=== PATIENT | male | born 1975 | race Caucasian/White ===

== ENCOUNTER 2021-05-23 13:12 | Inpatient (IN) | payer OTHER ==
[~2021-05-23] VITALS: Ht 167.6 cm; Wt 111.6 kg
[2021-05-23] MEDS ORDERED: DEXAMETHASONE 1 MG TABLET PO ONE (14:30)
[2021-05-23] MEDS ORDERED: hydrALAZINE HCL IV 20 MG VIAL IV ONE (14:30)
[2021-05-23 14:51] LABS: BASOPHILS # (AUTO) 0.1 K/uL (0.0-0.2); BASOPHILS % (AUTO) 0.9 % (0.0-2.0); EOSINOPHILS % (AUTO) 3.3 % (0.0-6.0); HEMATOCRIT 41 % (39-51); HEMOGLOBIN 13.6 g/dL (13.5-17.5); LYMPHOCYTES # (AUTO) 1.2 K/uL (0.8-4.8); LYMPHOCYTES % (AUTO) 13.7 % (20.0-44.0); MEAN CORPUSCULAR HGB CONC 33 g/dl (31.0-36.0); MEAN CORPUSCULAR VOLUME 84 fL (80-96); MONOCYTES # (AUTO) 0.6 K/uL (0.1-1.30); MONOCYTES % (AUTO) 6.7 % (2.0-12.0); NEUTROPHILS # (AUTO) 6.7 K/uL (1.8-8.9); NEUTROPHILS % (AUTO) 75.4 % (43.0-81.0); PLATELET COUNT (AUTO) 212 K/uL (150-450); RED BLOOD CELL COUNT(AUTO) 4.95 MIL/uL (4.5-6.0); WHITE BLOOD COUNT (AUTO) 8.9 K/uL (4.3-11.0)
[2021-05-23] MEDS ORDERED: hydrALAZINE HCL IV 20 MG VIAL ONE (14:55)
[2021-05-23 14:57] LABS: ABG BASE EXCESS -0.8 mmol/L; ABG OXYGEN SATURATION 97.3 % (92.0-98.5); ABG PCO2 37.9 mmHg (35.0-45.0); ABG PO2 98.7 mmHg (75.0-100.0); AaDO2 128.5 mmHg; COHb 1.4 % (0.5-1.5); MetHb 0.4 % (0.0-1.5); O2Hb 95.5 % (94.0-97.0); SITE, ABG Right Radial; VENT MODE, BG nasal cannula
[2021-05-23] MEDS ORDERED: DEXAMETHASONE 1 MG TABLET ONE (14:57)
[2021-05-23] MEDS ORDERED: DEXAMETHASONE 4 MG TABLET ONE (14:58)
[2021-05-23 15:01] LABS: CALCIUM, SERUM 8.9 mg/dL (8.5-10.1); POTASSIUM 3.9 mmol/L (3.5-5.1)
--- NOTE | 2021-05-23 15:09 | NUR ---
"I cant breathe/SOB started yesterday worse now. Also have pain on chest". PT AAOX4, PLACED ON GALLERY DIRECTOR, ST. ON 5L OF O2, SAT 96%. PT SEEN & EVAL'D BY DR. SANDERS. MEDICATED ORDERED, PT ESPERANZA WELL. WILL CONT TO MONITOR.
[2021-05-23 15:12] LABS: D-DIMER 0.28 mg/L(FEU (0.17-0.50)
[2021-05-23 15:14] LABS: ALBUMIN 3.6 g/dL (3.4-5.0); BILIRUBIN,TOTAL 0.3 mg/dL (0.2-1.0); TOTAL PROTEIN, SERUM 7.9 g/dL (6.4-8.2)
[2021-05-23] MEDS ORDERED: IPRATROPIUM NEB FS 0.5 MG/2.5 ML AMPUL.NEB NEB ONE (15:30)
[2021-05-23] MEDS ORDERED: ALBUTEROL FS 2.5 MG/3 ML VIAL.NEB CONTNEB ONE (15:30)
[2021-05-23] MEDS ORDERED: CEFTRIAXONE 1GM BAG (ER ONLY) 50 ML IV ONE ×2 (15:44→16:00)
[2021-05-23] MEDS ORDERED: IPRATROPIUM NEB FS 0.5 MG/2.5 ML AMPUL.NEB ONE (15:50)
[2021-05-23] MEDS ORDERED: ALBUTEROL FS 2.5 MG/3 ML VIAL.NEB ONE (15:50)
--- NOTE | 2021-05-23 15:55 | NUR ---
PT GETTING BREATHING TX, PT ESPERANZA WELL. WILL CONT TO MONITOR.
[2021-05-23] MEDS ORDERED: AZITHROMYCIN 500 MG in IV D5W 250 ML IV ONE (16:00)
[2021-05-23] MEDS ORDERED: HYDROCODONE/APAP 5/325MG TABLET PO PRN (17:00)
[2021-05-23] MEDS ORDERED: IPRATROPIUM NEB FS 0.5 MG/2.5 ML AMPUL.NEB NEB PRN (17:00)
[2021-05-23] MEDS ORDERED: GUAIFENESIN/CODEINE 10 ML UDC PO PRN (17:00)
[2021-05-23] MEDS ORDERED: ALBUTEROL FS 2.5 MG/0.5 ML VIAL.NEB NEB PRN (17:00)
[2021-05-23] MEDS ORDERED: MAGNESIUM HYDROXIDE 30 ML UDC PO PRN (17:00)
[2021-05-23] MEDS ORDERED: MAG HYDROX/AL HYDROX/SIMETH 30 ML UDC PO PRN (17:00)
[2021-05-23] MEDS ORDERED: ACETAMINOPHEN 325 MG TABLET PO PRN (17:00)
[2021-05-23] MEDS ORDERED: Z GUARD REMEDY 2 OZ OINT TP PRN (17:00)
[2021-05-23] MEDS ORDERED: ONDANSETRON HCL/PF 4 MG/2 ML VIAL IVP PRN (17:00)
[2021-05-23 17:30] LABS: C-REACTIVE PROTEIN 10.4 mg/dL (0.0-0.9)
--- NOTE | 2021-05-23 18:01 | NUR ---
NURSING SUP GAVE 109.
--- NOTE | 2021-05-23 20:02 | NUR ---
REPORT GIVEN TO PERCY BENOIT FOR MARTINA.
[2021-05-23 20:17] VITALS: BP 164/107
--- NOTE | 2021-05-23 20:17 | NUR ---
ADMIT NOTE RECEIVED PATIENT FROM ER TO ROOM 109. PATIENT ALERT AND ORIENTED X4, ABLE TO MAKE NEEDS KNOWN. ABLE TO AMBULATE SAFELY TO BED. ADMITTING DIAGNOSIS: COMMUNITY ACQUIRED PNEUMONIA AND CHEST PAIN. ON O2 2LPM VIA NASAL CANNULA, NO SIGNS OF RESPIRATORY DISTRESS. AUSCULTATED LUNG SOUNDS, RHONCHI NOTED BILATERALLY. WITH NON PRODUCTIVE COUGH. TELE MONITOR ON, HEART RATE 90'S. DENIES ANY PAIN AT THIS TIME. IV ACCESS ON RIGHT AC# 20, PATENT AND INTACT. NO SIGNS OF INFILTRATION. SKIN IS INTACT. ORIENTED PATIENT TO ROOM AND CALL LIGHT. BED LOCKED AND IN LOWEST POSITION. SAFETY MEASURES MAINTAINED. CALL LIGHT WITHIN REACH. ALL NEEDS ANTICIPATED.
[2021-05-23] MEDS: methylPREDNISolone SOD SUCC 40 MG/ML VIAL IV SCH (21:19)
[2021-05-23] MEDS: ZOLPIDEM TARTRATE 5 MG TABLET PO PRN (21:26)
[2021-05-24] VITALS: BP 169/107
--- NOTE | 2021-05-24 00:50 | NUR ---
NOTIFIED [facility] PATIENTS BLOOD PRESSURE 169/107 AND SWEATING PROFUSELY. DENIES ANY PAIN OR CHEST PAIN. RECEIVED NEW ORDERS FOR HYDRALAZINE 10MG PO Q8HRS PRN FOR SBP >160. NOTED AND CARRIED OUT.
[2021-05-24] MEDS: hydrALAZINE HCL 10 MG TABLET PO PRN ×2 (01:59→12:32)
[2021-05-24 03:28] LABS: BASOPHILS % (AUTO) 0.1 % (0.0-2.0); EOSINOPHILS % (AUTO) 0.1 % (0.0-6.0); HEMATOCRIT 43 % (39-51); HEMOGLOBIN 14.1 g/dL (13.5-17.5); LYMPHOCYTES # (AUTO) 0.6 K/uL (0.8-4.8); LYMPHOCYTES % (AUTO) 8.5 % (20.0-44.0); MEAN CORPUSCULAR HGB CONC 33 g/dl (31.0-36.0); MEAN CORPUSCULAR VOLUME 84 fL (80-96); MONOCYTES # (AUTO) 0.1 K/uL (0.1-1.30); MONOCYTES % (AUTO) 0.9 % (2.0-12.0); NEUTROPHILS % (AUTO) 90.4 % (43.0-81.0); PLATELET COUNT (AUTO) 207 K/uL (150-450); RED BLOOD CELL COUNT(AUTO) 5.12 MIL/uL (4.5-6.0); WHITE BLOOD COUNT (AUTO) 6.6 K/uL (4.3-11.0)
[2021-05-24 03:51] LABS: CREATININE 1.1 mg/dL (0.6-1.3); MAGNESIUM 2.2 mg/dL (1.8-2.4); PHOSPHORUS 4.1 mg/dL (2.5-4.9)
[2021-05-24 03:53] LABS: THYROID STIMULATING HORMONE 0.318 uIU/mL (0.358-3.74)
[2021-05-24 04:00] VITALS: BP 146/95
--- NOTE | 2021-05-24 04:23 | NUR ---
NOTIFIED LONNY CHOW OF GLUCOSE LVL 384, WITH NEW ORDERS RECEIVED, NOTED AND CARRIED OUT.
[2021-05-24] MEDS ORDERED: DEXTROSE 50%-WATER 50 ML DISP.SYRIN IV PRN (04:30)
[2021-05-24] MEDS: methylPREDNISolone SOD SUCC 40 MG/ML VIAL IV SCH ×3 (05:48→21:44)
--- NOTE | 2021-05-24 07:18 | NUR ---
RN NOTE PATIENT ALERT AND ORIENTED X4, ON O2 2LPM VIA NASAL CANNULA, NO SIGNS OF RESPIRATORY DISTRESS. TELE MONITOR ON, HEART RATE 90'S. DENIES ANY PAIN AT THIS TIME. IV ACCESS ON RIGHT AC# 20, PATENT AND INTACT. NO SIGNS OF INFILTRATION. ALL NEEDS ATTENDED PROMPTLY. BED LOCKED AND IN LOWEST POSITION. SAFETY MEASURES MAINTAINED. CALL LIGHT WITHIN REACH. ENDORSED TO AM SHIFT.
[2021-05-24] MEDS: BLOOD SUGAR DIAGNOSTIC 1 EACH STRIP IN SCH ×4 (07:30→23:56)
--- NOTE | 2021-05-24 07:30 | NUR ---
RN OPENING NOTE RN NOTE PT A/Ox4, ON O2 2LPM VIA NASAL CANNULA, NO SIGNS OF RESPIRATORY DISTRESS OR SOB. TELE MONITOR ON, HEART RATE NSR 90'S. PT IS AMBULATORY WITH STEADY GAIT. PT DENIES PAIN AT THIS TIME. IV ACCESS ON RT AC# 20 FLUSHED, PATENT AND INTACT. NO SIGNS OF INFECTION/INFILTRATION. BED LOCKED AND IN LOWEST POSITION. ALL PT SAFETY MEASURES MAINTAINED. CALL LIGHT WITHIN REACH.
[2021-05-24 08:00] VITALS: BP 150/94
--- NOTE | 2021-05-24 08:00 | NUR ---
RN NOTE DR MENSAH AWARE OF BNP [id number]
[2021-05-24] MEDS: PANTOPRAZOLE 40 MG TABLET.DR PO SCH (08:22)
--- NOTE | 2021-05-24 08:30 | NUR ---
RN NOTE PT ORIGINALLY REFUSED INSULIN WITH BLOOD GLUCOSE OF 456. DR MENSAH AWARE. AFTER 30+ MINUTES OF PT EDUCATION/RISKS, PT AGREED FOR INSULIN ADMIN, BUT SAID HE WOULDN'T TAKE ANY MORE INSULIN. WILL KEEP DR MENSAH UPDATED ON SITUATION
[2021-05-24] MEDS: INSULIN REGULAR, HUMAN 100 UNIT/ML 3 ML VIAL SQ PRN ×4 (09:05→23:57)
[2021-05-24 12:00] VITALS: BP 171/111
[2021-05-24] MEDS: METFORMIN 500 MG TABLET PO SCH ×2 (12:54→17:00)
[2021-05-24 16:00] VITALS: BP 147/94
[2021-05-24] MEDS: CEFTRIAXONE 1 G in IV D5W 50 ML IV SCH (16:50)
[2021-05-24] MEDS: AZITHROMYCIN 500 MG in IV D5W 250 ML IV SCH (17:31)
--- NOTE | 2021-05-24 19:00 | NUR ---
RN CLOSING NOTE NO CHANGES TO PT DURING SHIFT. PT IS STABLE ON 2L NC. PT REQUIRES A LOT OF DM EDUCATION AND GENERAL PT EDUCATION. MONITOR HYPERTENSION, HYDRALIZINE PRN AVAILABLE. ALL PT SAFETY PRECAUTIONS IN PLACE. MARTINA ENDORSED TO RN
[2021-05-24 20:00] VITALS: BP 164/111
[2021-05-24] MEDS: ZOLPIDEM TARTRATE 5 MG TABLET PO PRN (21:48)
[2021-05-25] VITALS: BP 158/106
--- NOTE | 2021-05-25 03:05 | NUR ---
RN notes Alert and oriented x 4. Ambulatory. Able to communicate needs verbally. No complaint of pain or discomfort. Ambien given for sleep. On 2lpm O2 via nasal cannula tolerating well. No distress noted. breathing even and unlabored. Kept clean and dry. No significant change of condition. Vital signs wnl. Will endorse to next shift for continuity of care.
[2021-05-25 04:00] VITALS: BP 161/114
[2021-05-25] MEDS: methylPREDNISolone SOD SUCC 40 MG/ML VIAL IV SCH ×3 (04:43→20:13)
[2021-05-25] MEDS: BLOOD SUGAR DIAGNOSTIC 1 EACH STRIP IN SCH ×4 (07:30→22:00)
[2021-05-25 08:00] VITALS: BP 156/95
--- NOTE | 2021-05-25 08:10 | NUR ---
NURSE REPORT REPORT OBTAINED FROM NIGHT NURSE AND THIS NURSE ASSUMED CARE OF PATIENT UNTIL 193 PT A/Ox4, ON RA- O2 SAT 98%, NO SIGNS OF RESPIRATORY DISTRESS OR SOB. TELE MONITOR ON, HEART RATE NSR TO ST. PATIENT ATE BREAKFAST BEFORE BG CAN BE TAKEN- THIS AM BG 400'S. GIVEN 10 UNITS INSULIN. PT IS AMBULATORY WITH STEADY GAIT. PT DENIES PAIN AT THIS TIME. IV ACCESS ON RT AC# 20 FLUSHED, PATENT AND INTACT. NO SIGNS OF INFECTION/INFILTRATION. BED LOCKED AND IN LOWEST POSITION. ALL PT SAFETY MEASURES MAINTAINED. CALL LIGHT WITHIN REACH.
[2021-05-25] MEDS: METFORMIN 500 MG TABLET PO SCH ×2 (08:47→17:25)
[2021-05-25] MEDS: PANTOPRAZOLE 40 MG TABLET.DR PO SCH (08:49)
[2021-05-25] MEDS: INSULIN REGULAR, HUMAN 100 UNIT/ML 3 ML VIAL SQ PRN ×3 (08:51→23:19)
[2021-05-25 12:00] VITALS: BP 164/113
[2021-05-25] MEDS: hydrALAZINE HCL 10 MG TABLET PO PRN ×2 (12:05→20:27)
[2021-05-25 16:00] VITALS: BP 153/106
--- NOTE | 2021-05-25 16:00 | NUR ---
NURSE CARE BG BEFORE LUNCH 320 AND BEFORE DINNER 171. DONE BEFORE GIVING IV ATB WITH D5W IN IT. PATIENT STATED "I AM NOT A DIABETIC. DIABETIC MEAN IN BED.' EXPLAINED THAT INFECTION CAN INCREASE SUGAR AND THAT HE ALSO ON STEROIDS. VSS. AFEB.
[2021-05-25] MEDS: CEFTRIAXONE 1 G in IV D5W 50 ML IV SCH (16:14)
[2021-05-25] MEDS: AZITHROMYCIN 500 MG in IV D5W 250 ML IV SCH (16:15)
--- NOTE | 2021-05-25 19:39 | NUR ---
CHIEF DEPUTY CORONER NOTES PT RECEIVED IN BED ALERT AND ORIENTED X4 PT ON ROOM AIR TOLERATING WELL NO REPORTS OF PAIN OR DISCOMFORT AT THIS TIME. ALL NURSING NEEDS MET AT THIS TIME. PT ON TELE MONITOR ST 100 PT HAS IV ACCESS ON THE RIGHT AC 20 G SL. CALL LIGHT WITHIN REACH. SAFETY PRECAUTIONS FOLLOWED AT ALL TIMES. HOB ELEVATED BILATERAL SIDE RAILS UP BED LOCKED IN POSITION. WILL CONTINUE TO MONITOR.
[2021-05-25 20:19] VITALS: BP 166/109
[2021-05-25] MEDS: INSULIN GLARGINE, 100 UNIT/ML CARTRIDGE SQ SCH ×2 (22:00→23:20)
[2021-05-25] MEDS: ZOLPIDEM TARTRATE 5 MG TABLET PO PRN (23:15)
[2021-05-26 00:50] VITALS: BP 145/100
[2021-05-26 04:26] VITALS: BP 149/105
[2021-05-26] MEDS: methylPREDNISolone SOD SUCC 40 MG/ML VIAL IV SCH ×2 (04:30→21:20)
--- NOTE | 2021-05-26 06:50 | NUR ---
JUNIOR PROGRAMMER ANALYST NOTES PT IN BED ALERT AND ORIENTED X4 PT ON ROOM AIR TOLERATING WELL NO REPORTS OF PAIN OR DISCOMFORT AT THIS TIME. ALL NURSING NEEDS MET AT THIS TIME. PT ON TELE MONITOR ST 100 PT HAS IV ACCESS ON THE RIGHT AC 20 G SL. CALL LIGHT WITHIN REACH. SAFETY PRECAUTIONS FOLLOWED AT ALL TIMES. HOB ELEVATED BILATERAL SIDE RAILS UP BED LOCKED IN POSITION. ALL NURSING NEEDS MET. ALL MEDS DUE GIVEN AND TOLERATED WILL ONLY MED PT REFUSED WAS LANTUS RISK AND BENEFITS EXPLAINED X 3 PT REFUSED X 3 PRN BLOOD PRESSURE MED GIVEN X1.WILL ENDORSE CARE.
[2021-05-26 07:12] LABS: BASOPHILS % (AUTO) 0.1 % (0.0-2.0); HEMATOCRIT 41 % (39-51); HEMOGLOBIN 13.4 g/dL (13.5-17.5); LYMPHOCYTES # (AUTO) 0.8 K/uL (0.8-4.8); LYMPHOCYTES % (AUTO) 8.2 % (20.0-44.0); MEAN CORPUSCULAR HGB CONC 33 g/dl (31.0-36.0); MEAN CORPUSCULAR VOLUME 84 fL (80-96); MONOCYTES # (AUTO) 0.5 K/uL (0.1-1.30); MONOCYTES % (AUTO) 4.9 % (2.0-12.0); NEUTROPHILS # (AUTO) 8.5 K/uL (1.8-8.9); NEUTROPHILS % (AUTO) 86.8 % (43.0-81.0); PLATELET COUNT (AUTO) 218 K/uL (150-450); RED BLOOD CELL COUNT(AUTO) 4.85 MIL/uL (4.5-6.0); WHITE BLOOD COUNT (AUTO) 9.8 K/uL (4.3-11.0)
[2021-05-26 07:38] LABS: CALCIUM, SERUM 8.6 mg/dL (8.5-10.1); CREATININE 1.1 mg/dL (0.6-1.3); MAGNESIUM 2.3 mg/dL (1.8-2.4); PHOSPHORUS 3.7 mg/dL (2.5-4.9); POTASSIUM 4.4 mmol/L (3.5-5.1)
--- NOTE | 2021-05-26 07:55 | NUR ---
DIRECTORY ASSISTANCE OPERATOR OPENING NOTE PATIENT IS IN BED RESTING, PATIENT IS ON ROOM AIR, SATURATING WELL. PATIENT IS ON TELE MONITOR READING ST 90s. PATIENT CAN AMBULATE TO THE BATHROOM. SAFETY PRECAUTIONS ARE ON, BED IS LOCKED IN THE LOWEST POSITION WITH SIDE RAILS UP, CALL LIGHT WITHIN REACH, WILL CONTINUE TO MONITOR CLOSELY.
[2021-05-26 08:00] VITALS: BP 149/101
[2021-05-26] MEDS: BLOOD SUGAR DIAGNOSTIC 1 EACH STRIP IN SCH ×4 (08:26→21:39)
[2021-05-26] MEDS: METFORMIN 500 MG TABLET PO SCH ×2 (08:26→17:16)
[2021-05-26] MEDS: PANTOPRAZOLE 40 MG TABLET.DR PO SCH (08:26)
[2021-05-26] MEDS: LISINOPRIL (10MG) 10 MG TABLET PO SCH (08:27)
[2021-05-26] MEDS: INSULIN REGULAR, HUMAN 100 UNIT/ML 3 ML VIAL SQ PRN ×4 (08:33→21:35)
[2021-05-26 12:00] VITALS: BP 175/120
[2021-05-26] MEDS: hydrALAZINE HCL 10 MG TABLET PO PRN ×2 (12:46→17:16)
[2021-05-26 16:00] VITALS: BP 170/113
[2021-05-26] MEDS: CEFTRIAXONE 1 G in IV D5W 50 ML IV SCH (16:18)
[2021-05-26] MEDS: AZITHROMYCIN 500 MG in IV D5W 250 ML IV SCH (18:02)
--- NOTE | 2021-05-26 19:00 | NUR ---
RN NOTE RECEIVED PATIENT IN BED RESTING ALERT ORIENTED X4 VERBALLY RESPONSIVE ON 2L OXYGEN VIA NASAL CANNULA,O2:97% AMBULATORY,IV SITE IS ON RIGHT AC INTACT PATENT,CONTINENT TO BOWEL/BLADDER SAFETY MEASURE IMPLEMENT CALL LIGHT WITHIN REACH CONTINUE TO MONITOR.
--- NOTE | 2021-05-26 19:40 | NUR ---
UNDRAPED ARTIST MODEL CLOSING NOTE PATIENT IS IN BED RESTING, PATIENT IS ON ROOM AIR, SATURATING WELL. PATIENT IS ON TELE MONITOR READING ST 90s. PATIENT CAN AMBULATE TO THE BATHROOM. SAFETY PRECAUTIONS ARE ON, BED IS LOCKED IN THE LOWEST POSITION WITH SIDE RAILS UP, CALL LIGHT WITHIN REACH, ENDORSE PATIENT TO RECYCLING CREW SUPERVISOR NURSE FOR MARTINA.
[2021-05-26 20:00] VITALS: BP 172/115
[2021-05-26] MEDS: INSULIN GLARGINE, 100 UNIT/ML CARTRIDGE SQ SCH (21:38)
[2021-05-26] MEDS: ZOLPIDEM TARTRATE 5 MG TABLET PO PRN (23:28)
[2021-05-27] VITALS: BP 147/104
[2021-05-27 04:00] VITALS: BP 160/108
[2021-05-27 06:40] LABS: BASOPHILS % (AUTO) 0.1 % (0.0-2.0); HEMATOCRIT 43 % (39-51); HEMOGLOBIN 14.1 g/dL (13.5-17.5); LYMPHOCYTES % (AUTO) 11.5 % (20.0-44.0); MEAN CORPUSCULAR HGB CONC 33 g/dl (31.0-36.0); MEAN CORPUSCULAR VOLUME 84 fL (80-96); MONOCYTES # (AUTO) 0.4 K/uL (0.1-1.30); MONOCYTES % (AUTO) 4.7 % (2.0-12.0); NEUTROPHILS # (AUTO) 7.1 K/uL (1.8-8.9); NEUTROPHILS % (AUTO) 83.7 % (43.0-81.0); PLATELET COUNT (AUTO) 221 K/uL (150-450); RED BLOOD CELL COUNT(AUTO) 5.16 MIL/uL (4.5-6.0); WHITE BLOOD COUNT (AUTO) 8.5 K/uL (4.3-11.0)
--- NOTE | 2021-05-27 06:47 | NUR ---
RN NOTE PATIENT REMAINS ON ALERT ORIENTED X4 VERBALLY RESPONSIVE NO SOB NOT ACUTE DISTRESS NOTED,ALL DUE MEDS GIVEN MD ORDERED ,KEPT CALL LIGHT WITHIN REACH,ALL NEEDS MET ENDORSE NEXT COMING SHIFT FOR CONTINUATION OF CARE.
[2021-05-27 07:00] LABS: CALCIUM, SERUM 8.7 mg/dL (8.5-10.1); MAGNESIUM 2.3 mg/dL (1.8-2.4); PHOSPHORUS 3.9 mg/dL (2.5-4.9); POTASSIUM 4.9 mmol/L (3.5-5.1)
[2021-05-27] MEDS: BLOOD SUGAR DIAGNOSTIC 1 EACH STRIP IN SCH ×4 (07:40→22:34)
[2021-05-27 08:00] VITALS: BP 161/108
--- NOTE | 2021-05-27 08:01 | NUR ---
NEWS DIRECTOR OPENING NOTES RECEIVED PATIENT IN BED AWAKE. ALERT AND ORIENTED X4. PATIENT IS ON TELE MONITOR WITH SINUS RHYTHM. ABLE TO MAKE NEEDS KNOWN. NO SIGNS OR SYMPTOMS OF DISTRESS NOTED. NO SOB. NO COMPLAINTS OF PAIN AT THIS TIME. SAFETY MEASURES IN PLACE, BED LOCKED AT LOWEST POSITION WITH SIDE RAILS UP X 2. CALL LIGHT IS WITHIN REACH. WILL CONTINUE TO MONITOR THROUGHOUT SHIFT.
[2021-05-27] MEDS: PANTOPRAZOLE 40 MG TABLET.DR PO SCH ×2 (08:26→08:33)
[2021-05-27] MEDS: methylPREDNISolone SOD SUCC 40 MG/ML VIAL IV SCH ×2 (08:32→21:55)
[2021-05-27] MEDS: METFORMIN 500 MG TABLET PO SCH ×2 (08:33→16:20)
[2021-05-27] MEDS: LISINOPRIL (10MG) 10 MG TABLET PO SCH (08:35)
[2021-05-27] MEDS: INSULIN REGULAR, HUMAN 100 UNIT/ML 3 ML VIAL SQ PRN ×4 (08:40→22:39)
[2021-05-27] MEDS: FUROSEMIDE 20 MG/2 ML VIAL IV ONE ×2 (11:39→11:47)
[2021-05-27 12:00] VITALS: BP 140/99
[2021-05-27] MEDS: hydrALAZINE HCL 10 MG TABLET PO PRN (13:39)
[2021-05-27] MEDS: CEFTRIAXONE 1 G in IV D5W 50 ML IV SCH (15:48)
[2021-05-27 16:09] VITALS: BP 169/105
[2021-05-27] MEDS: AZITHROMYCIN 500 MG in IV D5W 250 ML IV SCH (16:21)
--- NOTE | 2021-05-27 18:40 | NUR ---
SWORD SWALLOWER CLOSING NOTES TRANSFERRED PATIENT TO ROOM 304 WITH STABLE VITAL SIGNS. ALERT AND ORIENTED X 4. NO SOB. NO COMPLAINTS OF PAIN AT THIS TIME. ALL BELONGINGS WITH PATIENT WHEN TRANSFERRED. REPORT GIVEN TO ASHA PALAFOX.
--- NOTE | 2021-05-27 18:40 | NUR ---
tele custom protection officer: notes received pt from tele 1st floor via wheelchair accompanied by 1rn and 1 rn discharge with chart[address] pt on tele sr=[id number]. oriented to room and surroundings. pt wants to shower the second he gets here, but no order. no c/o sob, coughing, or congestion noted. instructed to call for assistance. will continue to monitor.
[2021-05-27 20:00] VITALS: BP 105/69
--- NOTE | 2021-05-27 21:00 | NUR ---
EQUAL OPPORTUNITY OFFICER NOTE RECEIVED PATIENT SITTING AT THE EDGE OF THE BED WATCHING ON HIS PHONE. PATIENT IS CURRENTLY ON RA TOLERATING WITH 100% O2 SATURATION, PATIENT DOES NOT COMPLAIN OF ANY PAIN AT THIS TIME. PATIENT ABLE TO AMBULATE WELL. BREATHING EVEN AND UNLABORED, NOT IN ANY APPARENT DISTRESS. PATIENT IS LOOKING FOR SLIPPERS, WILL CHECK BELONGINGS AND PREVIOUS UNIT. SAFETY MEASURES IN PLACE: BED IN LOCKED AND LOWEST POSITION, CALL LIGHT WITHIN REACH, SIDE RAILS UP. WILL MONITOR PATIENT CLOSELY.
[2021-05-27] MEDS: INSULIN GLARGINE, 100 UNIT/ML CARTRIDGE SQ SCH ×2 (22:00→22:37)
[2021-05-28] VITALS: BP 145/89
[2021-05-28] MEDS: ZOLPIDEM TARTRATE 5 MG TABLET PO PRN (00:05)
[2021-05-28 04:00] VITALS: BP 144/93
[2021-05-28 06:11] LABS: HEMATOCRIT 40 % (39-51); HEMOGLOBIN 13.1 g/dL (13.5-17.5); LYMPHOCYTES # (AUTO) 0.9 K/uL (0.8-4.8); LYMPHOCYTES % (AUTO) 10.9 % (20.0-44.0); MEAN CORPUSCULAR HGB CONC 33 g/dl (31.0-36.0); MEAN CORPUSCULAR VOLUME 83 fL (80-96); MONOCYTES # (AUTO) 0.3 K/uL (0.1-1.30); MONOCYTES % (AUTO) 3.8 % (2.0-12.0); NEUTROPHILS # (AUTO) 6.8 K/uL (1.8-8.9); NEUTROPHILS % (AUTO) 85.3 % (43.0-81.0); PLATELET COUNT (AUTO) 222 K/uL (150-450); RED BLOOD CELL COUNT(AUTO) 4.81 MIL/uL (4.5-6.0)
[2021-05-28 06:26] LABS: BILIRUBIN,TOTAL 0.2 mg/dL (0.2-1.0); CALCIUM, SERUM 8.5 mg/dL (8.5-10.1); MAGNESIUM 2.1 mg/dL (1.8-2.4); PHOSPHORUS 3.6 mg/dL (2.5-4.9); POTASSIUM 4.3 mmol/L (3.5-5.1); TOTAL PROTEIN, SERUM 6.6 g/dL (6.4-8.2)
[2021-05-28] MEDS: INSULIN REGULAR, HUMAN 100 UNIT/ML 3 ML VIAL SQ PRN ×2 (07:01→12:00)
[2021-05-28] MEDS: BLOOD SUGAR DIAGNOSTIC 1 EACH STRIP IN SCH ×2 (07:04→12:02)
--- NOTE | 2021-05-28 07:30 | NUR ---
RN CLOSING NOTE BS AT 2200 167 MG/DL, GAVE 6 UNITS OF REGULAR INSULIN. REFUSED GLARGINE EVEN THOUGH I'VE EXPLAINED PURPOSE OF MEDICATION WELL RISK AND BENEFITS. PATIENT HAVE BEEN EATING SNACKS THROUGH THE SHIFT. BS 0630 306 MG/DL, 8 UNITS COVERAGE GIVEN. TELE MONITOR READS SR 74 BPM. NO SIGNIFICANT CHANGES THROUGHOUT THE SHIFT, ALL NEEDS MET AND ATTENDED, ALL ORDERS CARRIED OUT. ENDORSED TO LYNN GREER FOR MARTINA.
--- NOTE | 2021-05-28 07:30 | NUR ---
JUNIOR TECHNICAL WRITER NOTES PT AWAKE, ALERT AND ORIENTED, SITTING IN BED, EATING BREAKFAST, NO COMPLAINT OF PAIN OR ANY DISCOMFORT, NO SOB, AMBULATES TO THE BATHROOM WITH STEADY GAIT, CALL LIGHT WITHIN REACH.
[2021-05-28 08:49] VITALS: BP 148/88
[2021-05-28] MEDS: methylPREDNISolone SOD SUCC 40 MG/ML VIAL IV SCH (08:49)
[2021-05-28] MEDS: LISINOPRIL (10MG) 10 MG TABLET PO SCH (08:49)
[2021-05-28] MEDS: METFORMIN 500 MG TABLET PO SCH (08:49)
[2021-05-28] MEDS ORDERED: METH4TAB17 PO (09:43)
[2021-05-28] MEDS ORDERED: METF-440 PO (09:43)
--- NOTE | 2021-05-28 13:38 | NUR ---
BIOLOGICAL SCIENCES PROFESSOR NOTES PT AWAKE, ALERT, WALKING INSIDE HIS ROOM WITH STEADY GAIT, NO COMPLAINT OF PAIN, RESPIRATIONS NORMAL, TOLERATES CURRENT DIET, SEEN BY DR. RIVERA, DISCHARGE ORDER GIVEN, DISCHARGE AND MEDICATION INSTRUCTIONS PROVIDED TO PT, VERBALIZED UNDERSTANDING, BELONGINGS ACCOUNTED FOR, NEW PRESCRIPTIONS GIVEN TO PT, ASSISTED PT TO HOSPITAL LOBBY, LEFT VIA PRIVATE CAR IN STABLE CONDITION.
== END 2021-05-28 13:30 | disposition home or self-care (01) | DRG 139 ==
LOC: ER 14:18 → TELE1 18:13 → TELE 05-27 18:40
PROVIDERS: ATTEND Hospitalist
DX: J12.9 Viral pneumonia, unspecified (principal); J44.0 Chronic obstructive pulmonary disease with (acute) lower respiratory infection; I16.9 Hypertensive crisis, unspecified; I10 Essential (primary) hypertension; Z20.822 Contact with and (suspected) exposure to COVID-19; Z72.0 Tobacco use; E11.9 Type 2 diabetes mellitus without complications; E66.9 Obesity, unspecified; Z68.39 Body mass index [BMI] 39.0-39.9, adult
CPT/HCPCS: 36415; 36600; 71045-TC; 80048-TC; 80053-TC; 80061-TC; 82550-TC; 82728-TC; 82803-TC; 82962-TC; 83605-TC; 83615-TC; 83735-TC; 83880; 84100-TC; 84443-TC; 84484-TC; 85025-TC; 85378-TC; 85730-TC; 86140-TC; 87040-TC; 87081-TC; 93307-TC; 97116-TC; 97530-TC; C9803; G0378; J0360; J0456; J0696; J1815; J1940; J2920; J3490; J7030; J7050; J7060; J8540; U0003